=== PATIENT | male | born 2000 | race American Indian/Alaskan Native ===

== ENCOUNTER 2021-10-04 20:05 | Emergency (ER) | payer SELFPAY ==
[2021-10-04 20:11] VITALS: BP 134/92
[2021-10-05] MEDS ORDERED: ALBUTEROL 2.5 MG/3 ML NEBU IH ONE ×2 (00:08→00:15)
[2021-10-05] MEDS ORDERED: predniSONE 20 MG TAB ONE (00:13)
[2021-10-05] MEDS ORDERED: AZITHROMYCIN 250 MG TAB ONE (00:14)
[2021-10-05] MEDS ORDERED: AZITHROMYCIN 250 MG TAB PO ONE (00:15)
[2021-10-05] MEDS ORDERED: predniSONE 20 MG TAB PO ONE ×2 (00:15)
--- NOTE | 2021-10-05 03:30 | Emergency Department Report ---
ED Asthma HPI - General Chief Complaint: Adult Asthma Stated Complaint: SOB Source: patient, EMS Mode of arrival: Ambulatory Limitations: No Limitations - History of Present Illness Initial Comments: Patient 21-year-old male with history of asthma who presents for cough and wheezing x3 days. Patient states out of albuterol inhaler requesting refill for same. Patient rates symptoms at 3/10 for normal asthma exacerbation for him. There is cough that is productive clear. There has been no fever no chills no nausea or vomiting. Patient has secondary complaint of penile discharge with white thick x3 days. Concern for STI. MD Complaint: "asthma attack" - Related Data Current Asthma Therapy: inhaled bronchodilator Previous Rx's Medication Instructions Recorded Last Taken Type Albuterol Mdi (or & Nicu Only) 2 puff IH QID PRN #8.5 gram 10/05/21 Unknown Rx [ProAir HFA Inhaler] DOXYCYCLINE Hyclate [Vibramycin 100 mg PO BID 7 Days #14 capsule 10/05/21 Unknown Rx CAP] predniSONE [Deltasone] 40 mg PO QDAY 5 Days #10 tab 10/05/21 Unknown Rx Allergies Allergy/AdvReac Type Severity Reaction Status Date / Time No Known Allergies Allergy Verified 10/05/21 02:49 ED Review of Systems ROS: Stated complaint: SOB Other details as noted in HPI Constitutional: malaise Eyes: denies: eye pain, eye discharge, vision change ENT: congestion. denies: ear pain, throat pain Respiratory: cough, shortness of breath, wheezing Cardiovascular: denies: chest pain, palpitations, paroxysmal nocturnal dyspnea Endocrine: no symptoms reported Gastrointestinal: denies: abdominal pain, nausea, vomiting, diarrhea Genitourinary: denies: urgency, dysuria Musculoskeletal: denies: back pain, joint swelling, arthralgia, myalgia Skin: denies: rash, lesions Neurological: denies: headache, weakness, paresthesias Psychiatric: denies: anxiety, depression Hematological/Lymphatic: as per HPI ED Past Medical Hx - Past Medical History Hx Asthma: Yes - Social History Smoking Status: Never Smoker Substance Use Type: None - Medications Home Medications: Home Medications Medication Instructions Recorded Confirmed Last Taken Type Albuterol Mdi (or & Nicu Only) 2 puff IH QID PRN #8.5 gram 10/05/21 Unknown Rx [ProAir HFA Inhaler] DOXYCYCLINE Hyclate [Vibramycin 100 mg PO BID 7 Days #14 capsule 10/05/21 Unknown Rx CAP] predniSONE [Deltasone] 40 mg PO QDAY 5 Days #10 tab 10/05/21 Unknown Rx ED Physical Exam - General Limitations: No Limitations General appearance: alert, in no apparent distress - Head Head exam: Present: atraumatic, normocephalic - Eye Eye exam: Present: normal appearance, EOMI Pupils: Present: normal accommodation - ENT ENT exam: Present: normal exam, normal orophraynx, mucous membranes moist, TM's normal bilaterally, normal external ear exam - Neck Neck exam: Present: normal inspection, full ROM. Absent: tenderness, lymphadenopathy - Respiratory Respiratory exam: Present: normal lung sounds bilaterally, wheezes, chest wall tenderness. Absent: respiratory distress, rales, rhonchi (Mild expiratory wheeze), stridor, prolonged expiratory - Cardiovascular Cardiovascular Exam: Present: regular rate, normal rhythm, normal heart sounds. Absent: systolic murmur, diastolic murmur, rubs, gallop - GI/Abdominal GI/Abdominal exam: Present: soft, normal bowel sounds. Absent: distended, tenderness, guarding, rebound, rigid, bruit, hernia - Rectal Rectal exam: Present: deferred - exam: Present: other (Deferred by patient) - Extremities Exam Extremities exam: Present: normal inspection, full ROM, normal capillary refill - Back Exam Back exam: Present: normal inspection, full ROM. Absent: CVA tenderness (R), CVA tenderness (L) - Neurological Exam Neurological exam: Present: alert, oriented X3, CN II-XII intact, normal gait - Psychiatric Psychiatric exam: Present: normal affect, normal mood - Skin Skin exam: Present: warm, dry, intact, normal color. Absent: rash ED Course Vital Signs 10/04/21 20:09 Temperature 97.3 F L Pulse Rate 90 Respiratory 16 Rate Blood Pressure 134/92 [Right] O2 Sat by Pulse 98 Oximetry ED Medical Decision Making - Medical Decision Making There is no fever no chills there is mild external wheezes only. Will refill albuterol inhaler as requested. Secondary complaint for STI contact. With penile discharge we will treat for STD. Patient will follow-up with health department for HIV and HSV screening. Critical care attestation.: If time is entered above; I have spent that time in minutes in the direct care of this critically ill patient, excluding procedure time. ED Disposition Clinical Impression: STD (sexually transmitted disease) Asthma Qualifiers: Asthma severity: moderate Asthma persistence: unspecified Asthma complication type: with acute exacerbation Qualified Code(s): J45.901 - Unspecified asthma with (acute) exacerbation Disposition: 01 HOME / SELF CARE / HOMELESS Is pt being admited?: No Does the pt Need Aspirin: No Condition: Stable Instructions: Asthma (ED), Asthma, Adult, Safe Sex Additional Instructions: Take medications as prescribed, follow-up with your primary care doctor in 2 to 3 days. Prescriptions: predniSONE [Deltasone] 40 mg PO QDAY 5 Days #10 tab Albuterol Mdi (or & Nicu Only) [ProAir HFA Inhaler] 2 puff IH QID PRN #8.5 gram PRN Reason: Shortness Of Breath DOXYCYCLINE Hyclate [Vibramycin CAP] 100 mg PO BID 7 Days #14 capsule Referrals: DINA ROBERTS MD [Primary Care Provider] - 3-5 Days Forms: Work/School Release Form(ED) Time of Disposition: 03:42
== END 2021-10-05 09:21 | disposition home or self-care (01) ==
LOC: ED 20:05
DX: J45.909 Unspecified asthma, uncomplicated (principal); Z20.2 Contact with and (suspected) exposure to infections with a predominantly sexual mode of transmission; Z79.899 Other long term (current) drug therapy
CPT/HCPCS: 99282; J0696